=== PATIENT | female | born 2000 | race Caucasian/White ===

== ENCOUNTER 2020-01-16 12:29 | Outpatient (CLI) | payer MEDICAID, SELFPAY ==
--- NOTE | ~2020-01-16 | US_ITS ---
EXAMINATION: US OB <=14 wk fetus w TV DATE: 01/16/2020 13:49 INDICATION: First trimester dating TECHNIQUE: Real-time pelvic transabdominal and transvaginal ultrasound was performed. COMPARISON: None. FINDINGS: The uterus measures 11.0 x 7.7 x 9.2 cm. There is an intrauterine gestational sac. A yolk sac is identified. heart motion is identified measuring 166 beats per minute (bpm) by M-mode Do ppler. The crown rump length measures 2.1 cm , which correlates with an estimated gestational a ge of 8 weeks and 5 day(s) (+/-) 5 day(s). The right ovary is not visualized however no right adnexal abnormality is seen. The left ovary measur es 1.8 x 1.7 x 1.6 cm. There is no free fluid in the pelvis. IMPRESSION: 1. Live intrauterine with an estimated gestational age of 8 weeks and 5 day(s) (+/-) 5 day( s) and an estimated delivery date of 08/22/2020. Reviewed, dictated and finalized at location B. IMPRESSION: 1. Live intrauterine with an estimated gestational age of 8 weeks and 5 day(s) (+/-) 5 day(s) and an estimated delivery date of 08/22/2020.
== END 2020-01-16 12:30 | disposition home or self-care (01) ==
PROVIDERS: Visit Provider Obstetrics & Gynecology
DX: Z34.91 Encounter for supervision of normal pregnancy, unspecified, first trimester (principal); Z3A.08 8 weeks gestation of pregnancy
CPT/HCPCS: 76801; 76817

== ENCOUNTER 2020-03-31 10:04 | Outpatient (CLI) | payer OTHER, SELFPAY ==
--- NOTE | ~2020-03-31 | US_ITS ---
EXAMINATION: US OB /maternal detail DATE: 03/31/2020 11:27 INDICATION: anatomic survey. TECHNIQUE: Real-time ultrasound of the pelvis was performed. COMPARISON: Ultrasound 01/16/2020 FINDINGS: There is a single living fetus in vertex presentation. The placenta is anterior, 5.2 cm from the cer vix. heart rate is 139 beats per minute (bpm). The amniotic fluid volume is subjectively normal . The following biometric data were obtained: Biparietal diameter (BPD): 4.5 cm; head circumference (HC): 16.4 cm; abdominal circumference (AC): 13 .9 cm; femur length (FL): 2.9 cm. These measurements are concordant. Estimated weight is 279 g +/- 42 g, which correlates with 32nd percentile when 08/22/20 is used as estimated date of delivery. As single measurements, these parameters are each equal to the following estimated gestational ages w ith ranges of +/- 2 standard deviations: BPD: 19 weeks 5 days (18 weeks 0 days - 21 weeks 3 days). HC: 19 weeks 1 days (17 weeks 4 days - 20 weeks 4 days). AC: 19 weeks 2 days (17 weeks 2 days - 21 weeks 3 days). FL: 19 weeks 0 days (17 weeks 2 days - 20 weeks 6 days). estimated gestational age based solely on measurements from this exam is 19 weeks 2 days +/- 1 weeks 2 days. The cerebral ventricles, cerebellum, cisterna magna, nuchal fold, and visualized portions of the spin e are normal. The heart is normal. The diaphragm, stomach, kidneys, and bladder are normal. There are two umbilical arteries to yield a 3-vessel cord. The cord insertion is normal. IMPRESSION: 1. Single living fetus in vertex presentation. 2. Estimated weight is 279 g +/- 42 g, which correlates with 32nd percentile when 08/22/20 is u sed as estimated date of delivery. This date was set by ultrasound on 01/16/2020. 3. Normal anatomic survey. Reviewed, dictated and finalized at location A. IMPRESSION: 1. Single living fetus in vertex presentation. 2. Estimated weight is 279 g +/- 42 g, which correlates with 32nd percen tile when 08/22/20 is used as estimated date of delivery. This date was set by [facility] on 01/16/2020. 3. Normal anatomic survey.
== END 2020-03-31 10:05 | disposition home or self-care (01) ==
PROVIDERS: Visit Provider Obstetrics & Gynecology
DX: Z34.92 Encounter for supervision of normal pregnancy, unspecified, second trimester (principal); Z3A.19 19 weeks gestation of pregnancy
CPT/HCPCS: 76805

== ENCOUNTER 2020-05-14 14:56 | Observation (INO) | payer OTHER, SELFPAY ==
[2020-05-14 15:15] VITALS: BMI 33.9
[2020-05-14 15:59] VITALS: BP 123/67; PULSE 76
[2020-05-14 16:01] VITALS: BP 117/71; PULSE 85
[2020-05-14 16:15] VITALS: BP 112/71; PULSE 85
[2020-05-14 16:20] LABS: Add Urine Microscopic? YES; Appearance Urine Clear (Clear); Bacteria Urine Trace /hpf; Bilirubin Urine Negative (Negative); Blood Urine Negative (Negative); Color Urine Yellow (Yellow); Glucose Urine UA Negative (Negative); Ketones Urine Trace mg/dL (Negative); Leukocyte Esterase Ur Negative LEU/UL (NEGATIVE); Mucus Urine Moderate /lpf; Nitrate Urine Negative (Negative); Protein Urine 1+ mg/dL (Negative); RBC Urine 0-2 /hpf (0-2); Squamous Epithelial Cell Urine Few /hpf (Few); Urobilinogen Urine Negative mg/dL (<2.0)
[2020-05-14 16:30] VITALS: BP 105/46; PULSE 83
[2020-05-14 16:45] VITALS: BP 124/79; PULSE 87
[2020-05-14 17:00] VITALS: BP 129/75; PULSE 94
--- NOTE | 2020-05-14 18:15 | P.PNOB_ITS ---
OB - Triage/Final Diagnosis Evaluation Laboratory results: Laboratory Tests 05/14/20 16:05 Urine Color Yellow Urine Appearance Clear Urine pH 6.0 Ur Specific [place] 1.020 Urine Protein 1+ H Urine Glucose (UA) Negative Urine Ketones Trace Ur Blood (Man) Negative Urine Nitrate Negative Urine Bilirubin Negative Urine Urobilinogen Negative Ur Leukocyte Esterase Negative Urine RBC 0-2 Urine WBC 4-6 H Ur Squamous Epith Cells Few Urine Bacteria Trace Urine Mucus Moderate H Vital signs: Vital Signs - 24 hr 05/14/20 15:59 05/14/20 16:01 05/14/20 16:15 Pulse Rate 76 85 85 Blood Pressure 123/67 117/71 112/71 05/14/20 16:30 05/14/20 16:45 05/14/20 17:00 Pulse Rate 83 87 94 Blood Pressure 105/46 L 124/79 129/75 Final Diagnosis (1) Abdominal pain affecting : Code(s): O26.899 - Other specified related conditions, unspecified trimester; R10.9 - Unspecified abdominal pain Status: Acute
== END 2020-05-14 17:25 | disposition home or self-care (01) ==
PROVIDERS: Admitting Provider Obstetrics & Gynecology; Visit Provider Obstetrics & Gynecology
DX: O26.899 Other specified pregnancy related conditions, unspecified trimester (principal); R10.9 Unspecified abdominal pain; Z3A.00 Weeks of gestation of pregnancy not specified
CPT/HCPCS: 81001; 87086; 87088; G0378; G0379

== ENCOUNTER 2020-05-27 10:47 | Outpatient (RCR) | payer OTHER, SELFPAY ==
[2020-05-27] MEDS: RHO(D) IMMUNE GLOBULIN 300 MCG SYRINGE IM (15:09)
== END 2020-08-25 23:59 | disposition home or self-care (01) ==
LOC: ANHLAB 10:47
PROVIDERS: Visit Provider Physician Assistant
DX: Z29.13 Encounter for prophylactic Rho(D) immune globulin (principal); O36.0990 Maternal care for other rhesus isoimmunization, unspecified trimester, not applicable or unspecified; Z3A.00 Weeks of gestation of pregnancy not specified
CPT/HCPCS: 36415; 85461; 90384; 96372; J2790

== ENCOUNTER 2020-05-31 13:36 | Outpatient (CLI) | payer OTHER, SELFPAY ==
--- NOTE | ~2020-05-31 | US_ITS ---
EXAMINATION: US OB follow up DATE: 05/31/2020 14:18 INDICATION: Routine care. TECHNIQUE: Real-time transabdominal obstetric ultrasound. FINDINGS: Comparison to multiple prior studies sequentially, with oldest reviewed study dated 2019. There is a single living fetus in vertex presentation. The placenta is anterior without placenta pre via. cardiac activity and movement is noted with a heart rate of 127 beats per minute. A mniotic fluid index is below normal limits measuring 8.95 cm (normal range measures 9.4-22.8 cm). The following biometric data were obtained: BPD: 72mm corresponds to gestational age 29 weeks 0 days. Head circumference: 266mm corresponds to gestational age 28 weeks 6 days. Abdominal circumference: 240mm corresponds to gestational age 28 weeks 2 days. Femur length: 54mm corresponds to gestational age 28 weeks 4 days. Estimated weight: 1233grams +/- 185grams.] IMPRESSION: 1. Single living intrauterine in vertex presentation with an estimated gestational age of 28 weeks 1 days by inititial ultrasound. Appropriate interval growth. 2. Normal placenta. 3: Oligohydramnios. ROCHELLE measures 8.95 cm. Reviewed, dictated and finalized at location A. MANAGER IMPRESSION: 1. Single living intrauterine in vertex presentation with an estimat ed gestational age of 28 weeks 1 days by inititial ultrasound. Appropriate int erval growth. 2. Normal placenta. 3: Oligohydramnios. ROCHELLE measures 8.95 cm.
== END 2020-05-31 13:37 | disposition home or self-care (01) ==
LOC: ANHIMG 13:39
PROVIDERS: Visit Provider Physician Assistant
DX: O41.03X0 Oligohydramnios, third trimester, not applicable or unspecified (principal); Z3A.28 28 weeks gestation of pregnancy
CPT/HCPCS: 76816

== ENCOUNTER 2020-07-29 16:46 | Outpatient (RCR) | payer OTHER, SELFPAY ==
[2020-07-20 20:52] VITALS: BP 124/70
--- NOTE | ~2020-07-29 | US_ITS ---
EXAMINATION: US OB BPP wo non-stress EXAM DATE: 07/29/2020 18:08 INDICATION: Preeclampsia. Biophysical profile requested. 3rd trimester. TECHNIQUE: Pelvic obstetrical transabdominal sonogram was performed by a technologist. There are mu ltiple grayscale and Doppler images available for interpretation. There are no earlier studies of th is gestation for comparison. FINDINGS: There is a single fetus identified in vertex presentation with a heart rate of 135 beats pe r minute. The placenta is located in the anterior position. Placental margin to internal cervical os distance is about 9 cm. There is no sonographic evidence of retroplacental hemorrhage identified. BIOPHYSICAL PROFILE (performed by the technologist) breathing (30 sec sustained breathing in 30 minutes): 2 out of 2 movement (3 gross body movements in 30 minutes): 2 out of 2 tone (one episode of hfqldip-pcxynjhjv-oliqdfc limb movement): 2 out of 2 Amniotic fluid pocket (2 cm): 2 out of 2 Total score: 8 out of 8 IMPRESSION: 1. Single fetus with heart rate of 135 bpm. 2. Normal biophysical profile score of 8 out of 8. Reviewed, dictated and finalized at location A. ERIES DIRECTOR
[2020-07-29 17:31] LABS: Hematocrit 33.2 % (37.0-47.0); Hemoglobin 11.6 g/dL (12.0-15.0); Mean Corpuscular HGB Conc 34.9 g/dl (32-36); Mean Corpuscular Hemoglobin 30.3 pg (26-34); Mean Corpuscular Volume 86.7 fl (80-100); Mean Platelet Volume 9.2 fl (7.4-10.4); Platelet Count Result 288 k/mm3 (150-375); Red Blood Count 3.83 M/mm3 (4.2-5.4); Red Cell Distribution Width 12.4 % (11.5-14.5); White Blood Count 13.2 K/mm3 (4.5-10.0)
[2020-07-29 17:36] LABS: Add Urine Microscopic? YES; Appearance Urine Cloudy (Clear); Bacteria Urine Trace /hpf; Bilirubin Urine Negative (Negative); Blood Urine Negative (Negative); Color Urine Yellow (Yellow); Glucose Urine UA Negative (Negative); Ketones Urine Negative (Negative); Leukocyte Esterase Ur Negative LEU/UL (NEGATIVE); Mucus Urine Heavy /lpf; Nitrate Urine Negative (Negative); Protein Urine 2+ mg/dL (Negative); RBC Urine 0-2 /hpf (0-2); Specific Grav Ur 1.027 (1.001-1.035); Squamous Epithelial Cell Urine Few /hpf (Few); Urobilinogen Urine Negative mg/dL (<2.0); WBC Urine 0-3 /hpf (0-3)
[2020-07-29 17:43] LABS: Alanine Aminotransferase 12 U/L (4-35); Albumin Level 3.8 g/dL (3.5-5.1); Alkaline Phosphatase 108 U/L (38-126); Anion Gap 7 mmol/L (8-16); Aspartate Amino Transferase 19 U/L (14-36); Bilirubin,Total 1.1 mg/dL (0.2-1.3); Blood Urea Nitrogen 7 mg/dL (7-17); Calcium 9.2 mg/dL (8.4-10.2); Carbon Dioxide 20 mmol/L (22-30); Chloride 107 mmol/L (98-107); Estimated Glomerular Filt Rate > 60; Glucose 91 mg/dL (65-105); Potassium 3.8 mmol/L (3.4-5.0); Sodium 134 mmol/L (137-145); Uric Acid 2.8 mg/dL (2.5-7.5)
[2020-07-29 18:00] VITALS: BP 115/68
--- NOTE | 2020-07-29 18:07 | PC.NURSE ---
Dr Kirk informed of [facility] labs, NST results, and BPP, current BP's, OK to dc home and follow up in office next week.
== END 2020-08-16 07:51 | disposition home or self-care (01) ==
LOC: ANHOBOP 16:46
PROVIDERS: Visit Provider Obstetrics & Gynecology
DX: O36.8130 Decreased fetal movements, third trimester, not applicable or unspecified (principal); Z3A.35 35 weeks gestation of pregnancy; O16.3 Unspecified maternal hypertension, third trimester; Z3A.36 36 weeks gestation of pregnancy
CPT/HCPCS: 36415; 59025; 76819; 80053; 81001; 84550; 85027

== ENCOUNTER 2020-08-02 08:04 | Observation (INO) | payer OTHER, SELFPAY ==
[2020-08-02 08:28] VITALS: BMI 38.2
--- NOTE | 2020-08-02 08:29 | OBADM ---
This patient, Cassie Harrell, admitted to the OB room OB Post 116 for observation. Patient/family oriented to hospital policies and general routines including ID bracelet, bed and alarms, visiting hours, pain management, procedures, bathroom and other care routines, personal items, smoking policy, room service/diet, and visiting hours. Patient/Family are encouraged to report perceived risks to care and to ask questions if they do not understand what they are told or what they should do.
[2020-08-02 08:31] VITALS: BP 106/55; PULSE 100
--- NOTE | 2020-08-02 08:43 | PC.NURSE ---
0815- Patient reports that she fell on her front steps after slipping on cat litter. States she fell on her bottom down about 2 steps, certain she did not hit her belly.
--- NOTE | 2020-08-02 08:44 | PC.NURSE ---
0837- Spoke with Dr. Kirk, informed of patient admission after a fall around 0300. Patient states she did not hit her belly. Orders to monitor patient for duration of NST, if reactive patient may be discharged to home. We may do a BPP if patient is concerned about baby. No orders for prolonged monitoring or KB stain. Patient declines ultrasound.
[2020-08-02 08:58] VITALS: BP 106/55; PULSE 89
--- NOTE | 2020-08-08 07:50 | PM.OBTRLD ---
OB - Triage/Final Diagnosis Visit Information Comments/Additional reasons for admission: I have assessed the risk for this patient, Cassie Harrell, and determined that she would benefit from observation care. Final Diagnosis (1) PIH ( induced hypertension), antepartum: Code(s): O13.9 - Gestational [-induced] hypertension without significant proteinuria, unspecified trimester Status: Acute
== END 2020-08-02 09:08 | disposition home or self-care (01) ==
PROVIDERS: Admitting Provider Obstetrics & Gynecology; Visit Provider Obstetrics & Gynecology
DX: O13.3 Gestational [pregnancy-induced] hypertension without significant proteinuria, third trimester (principal); Z3A.37 37 weeks gestation of pregnancy
CPT/HCPCS: 59025; G0378; G0379

== ENCOUNTER 2020-08-05 16:26 | Outpatient (CLI) | payer OTHER, SELFPAY ==
[2020-08-05 16:54] VITALS: BP 130/72; PULSE 115
[2020-08-05 17:00] VITALS: BP 124/77; PULSE 109; TEMP 36.9
[2020-08-05 17:01] VITALS: BP 124/77; PULSE 109
[2020-08-05 17:14] LABS: Basophils Absolute Auto 0.1 K/mm3 (0.0-0.1); Basophils Percent Auto 0.5 % (0.2-1.2); Eosinophils Percent Auto 0.2 % (0-4.4); Hematocrit 33.1 % (37.0-47.0); Hemoglobin 11.2 g/dL (12.0-15.0); Immature Granulocyte Percent A 2.6 % (0-0.5); Lymphocytes Absolute Auto 2.04 K/mm3 (0.9-3.2); Lymphocytes Percent Auto 13.3 % (18.3-44.2); Mean Corpuscular HGB Conc 33.8 g/dl (32-36); Mean Corpuscular Hemoglobin 29.2 pg (26-34); Mean Corpuscular Volume 86.2 fl (80-100); Mean Platelet Volume 9.3 fl (7.4-10.4); Monocytes Absolute Auto 1.2 K/mm3 (0.1-0.6); Monocytes Percent Auto 7.9 % (2.6-8.5); Neutrophils Absolute Auto 11.6 K/mm3 (1.3-6.7); Neutrophils Percent Auto 75.5 % (45.5-73.1); Platelet Count Result 270 k/mm3 (150-375); Red Blood Count 3.84 M/mm3 (4.2-5.4); Red Cell Distribution Width 12.7 % (11.5-14.5); White Blood Count 15.3 K/mm3 (4.5-10.0)
[2020-08-05 17:16] VITALS: BP 129/88; PULSE 110
[2020-08-05 17:18] LABS: Add Urine Microscopic? YES; Amorphous Sediment Urine Few; Appearance Urine Cloudy (Clear); Bacteria Urine Trace /hpf; Bilirubin Urine Negative (Negative); Blood Urine Negative (Negative); Color Urine Yellow (Yellow); Glucose Urine UA Negative (Negative); Ketones Urine Trace mg/dL (Negative); Leukocyte Esterase Ur Negative LEU/UL (NEGATIVE); Mucus Urine Few /lpf; Nitrate Urine Negative (Negative); Protein Urine 1+ mg/dL (Negative); RBC Urine 0-2 /hpf (0-2); Specific Grav Ur 1.015 (1.001-1.035); Squamous Epithelial Cell Urine Occasional /hpf (Few); Urobilinogen Urine Negative mg/dL (<2.0); WBC Urine 0-3 /hpf (0-3)
[2020-08-05 17:19] LABS: Alanine Aminotransferase 12 U/L (4-35); Albumin Level 3.8 g/dL (3.5-5.1); Alkaline Phosphatase 127 U/L (38-126); Anion Gap 10 mmol/L (8-16); Aspartate Amino Transferase 19 U/L (14-36); Bilirubin,Total 0.8 mg/dL (0.2-1.3); Blood Urea Nitrogen 8 mg/dL (7-17); Calcium 9.6 mg/dL (8.4-10.2); Carbon Dioxide 19 mmol/L (22-30); Chloride 107 mmol/L (98-107); Estimated Glomerular Filt Rate > 60; Glucose 86 mg/dL (65-105); Potassium 4.1 mmol/L (3.4-5.0); Sodium 136 mmol/L (137-145); Uric Acid 3.2 mg/dL (2.5-7.5)
[2020-08-05 17:19] LABS: Creatinine Urine 88.3 mg/dL; Total Protein Urine Random 37 mg/dL; Ur Ttl Prot Creatinine Ratio 0.42 mg/mg (0-0.20)
[2020-08-05 17:21] VITALS: BP 129/88; PULSE 110
--- NOTE | 2020-08-05 17:30 | PC.NURSE ---
Dr. Kirk informed of reactive NST, BP's, and lab results. OK to discharge to home and to keep next scheduled appointment.
[2020-08-05 17:31] VITALS: BP 137/58; PULSE 118
== END 2020-08-05 17:33 | disposition home or self-care (01) ==
LOC: ANHOBOP 16:32 → ANHOBPP 16:33
PROVIDERS: Visit Provider Obstetrics & Gynecology
DX: O13.9 Gestational [pregnancy-induced] hypertension without significant proteinuria, unspecified trimester (principal); Z3A.00 Weeks of gestation of pregnancy not specified
CPT/HCPCS: 36415; 59025; 80053; 81001; 82570; 84156; 84550; 85025; 87086; 87088; 99199

== ENCOUNTER 2020-08-14 04:49 | Inpatient (IN) | payer OTHER, SELFPAY ==
--- NOTE | 2020-08-13 21:01 | PM.IMHP ---
H&P: HPI History of Present Illness Date/Time: 08/13/20 21:01 Chief Complaint: elective induction of labor 38.6 w for PIH Narrative: Cassie Harrell is a 20 year old female primigravida presents for IOL due to PIH at 38w6d. c/b MTHFR, bipolar disorder, RhD negative, PCOS, JOSE, and pre-eclampsia. Discuss IOL wth cervidil possible two doses then pitocin with magnesium sulfate.i explained her condition the procedure and risks including mat/fet ind for c/s with risk of bleeding, infection, injury to bladdder, bowel, baby, dvt, pneumonia, wound infection, uti and risk of anesthesia. Review of Systems Review of Systems: All systems reviewed & are unremarkable except as noted in HPI and below Constitutional: Constitutional: Reports no additional constitutional complaints Eyes: Eyes: Reports no additional eye complaints ENT: Reports system reviewed and no additional complaints, except as documented Cardiovascular: Cardiovascular: Reports no additional cardiovascular complaints, Reports pedal edema, Reports edema and Reports leg edema Respiratory: Respiratory: Reports no additional respiratory complaints Gastrointestinal: Gastrointestinal: Reports no additional gastrointestinal complaints Genitourinary: Genitourinary: Reports no additional female genitourinary complaints Musculoskeletal: Musculoskeletal: Reports no additional musculoskeletal complaints Integumentary/Breasts: Skin/Breast: Reports system reviewed and no additional complaints, except as docu Neurologic: Reports system reviewed and no additional complaints, except as documented Psychiatric: Psychiatric: Reports no additional psychiatric complaints Endocrine: Endocrine: Reports no additional endocrine complaints Hematologic/Lymphatic: Hematologic/Lymphatic: Reports no additional hematologic/lymphatic complaints [facility] Past Medical History Medical History (Updated 08/13/20 @ 21:17 by Jonah Kirk MD) Bipolar 1 disorder Compound heterozygous MTHFR mutation [id number] JOSE (generalized anxiety disorder) IBS (irritable bowel syndrome) PCOS (polycystic ovarian syndrome) Rh negative state in antepartum period Surgical History Surgical History (Updated 08/13/20 @ 21:14 by Jonah Kirk MD) H/O wisdom tooth extraction Hx of tonsillectomy Family History Family History Grandparent Hypertension Sibling Anemia Social History Social History (Updated 08/13/20 @ 21:15 by Jonah Kirk MD) Smoking status: Never smoker Alcohol intake: never Substance use: former Substance use type: marijuana Living arrangements: with family Occupation/Education: unemployed Gender identity (if verbalized by the patient): Female Spiritual care concerns: No Agree to blood products: Yes Meds Home Medications and Allergies Home Medications Medication Instructions Recorded Confirmed Type folic acid 2 mg PO BID 07/20/20 08/05/20 History lamotrigine 100 mg PO BID 07/20/20 08/05/20 History prenat.vits,catia,bem-[id number] 1 tablet PO DAILY 07/27/20 08/05/20 History Allergies Allergy/AdvReac Type Severity Reaction Status Date / Time clavulanic acid Allergy Unknown Hives Verified 08/05/20 17:09 Sulfa (Sulfonamide Allergy Unknown Hives Verified 08/05/20 17:12 Antibiotics) doxycycline AdvReac Vomiting Verified 08/05/20 17:12 Exam Const: General: cooperative, healthy appearing, comfortable, no acute distress, well developed, alert, awake and Physically active Nutritional Appearance: average body habitus, well nourished and edematous Orientation/consciousness: patient oriented x3 Limitations: no limitations HENMT: Head: normal to inspection Eyes: General: appearance normal, both eyes and all related structures Neck: Neck: normal visual inspection and full ROM Chest: Chest palpation & inspection: normal inspection of the chest Breast/axilla inspection: nor
--- NOTE | 2020-08-13 21:23 | WPDOBADMIT ---
Obstetrics - Admit Note Admission Note: record reviewed. No pertinent additions to the history and/or any subsequent changes in the physical findings that are not consistent with the expected course of the were found. Additions to the history and/or subsequent changes in the physical findings follow. None. Cassie Harrell is a 20 year old female primigravida presents for IOL due to PIH at 38w6d. c/b MTHFR, bipolar disorder, RhD negative, PCOS, JOSE, and pre-eclampsia. Discuss IOL wth cervidil possible two doses then pitocin with magnesium sulfate.i explained her condition the procedure and risks including mat/fet ind for c/s with risk of bleeding, infection, injury to bladdder, bowel, baby, dvt, pneumonia, wound infection, uti and risk of anesthesia.
--- NOTE | 2020-08-13 21:25 | WPDHPUPDATE1 ---
History and Physical Update Update Date/Time: 08/13/20 21:25 History and Physical has been reviewed, including an updated exam of the patient. There are NO changes in the patient's condition. Risks, benefits, and alternatives have been discussed and questions answered. Patient agrees to proceed with procedure. Cassie Harrell is a 20 year old female primigravida presents for IOL due to PIH at 38w6d. c/b MTHFR, bipolar disorder, RhD negative, PCOS, JOSE, and pre-eclampsia. Discuss IOL wth cervidil possible two doses then pitocin with magnesium sulfate.i explained her condition the procedure and risks including mat/fet ind for c/s with risk of bleeding, infection, injury to bladdder, bowel, baby, dvt, pneumonia, wound infection, uti and risk of anesthesia.
[2020-08-14] VITALS (109 sets, daily range): BP systolic 86–152; BP diastolic 44–88; PULSE 64–122; TEMP 36.6–36.9; O2SAT 97–100; BMI 38.0
--- NOTE | 2020-08-14 04:49 | LDADM ---
This patient, Cassie Harrell, was admitted to Labor/Delivery/Recovery 104 on 08/14/20 at 04:49. Plans for labor, pain management and were discussed with patient. Patient/family oriented to hospital policies and general routines including ID bracelet, bed and alarms, visiting hours, pain management, procedures, bathroom and other care routines, personal items, smoking policy, room service/diet and guest tray routines, infant security routines, and visiting hours. Patient/Family are encouraged to report perceived risks to care and to ask questions if they do not understand what they are told or what they should do. See OBIX for further documentation.
[2020-08-14 05:44] LABS: Basophils Percent Auto 0.3 % (0.2-1.2); Eosinophils Absolute Auto 0.1 K/mm3 (0-0.3); Eosinophils Percent Auto 0.5 % (0-4.4); Hematocrit 34.2 % (37.0-47.0); Hemoglobin 11.4 g/dL (12.0-15.0); Immature Granulocyte Absolute 0.19 K/mm3 (0.00-0.031); Immature Granulocyte Percent A 1.7 % (0-0.5); Lymphocytes Absolute Auto 2.48 K/mm3 (0.9-3.2); Lymphocytes Percent Auto 21.8 % (18.3-44.2); Mean Corpuscular HGB Conc 33.3 g/dl (32-36); Mean Corpuscular Hemoglobin 29.2 pg (26-34); Mean Corpuscular Volume 87.5 fl (80-100); Mean Platelet Volume 9.1 fl (7.4-10.4); Monocytes Absolute Auto 0.8 K/mm3 (0.1-0.6); Monocytes Percent Auto 7.4 % (2.6-8.5); Neutrophils Absolute Auto 7.8 K/mm3 (1.3-6.7); Neutrophils Percent Auto 68.3 % (45.5-73.1); Platelet Count Result 265 k/mm3 (150-375); Red Blood Count 3.91 M/mm3 (4.2-5.4); White Blood Count 11.4 K/mm3 (4.5-10.0)
[2020-08-14 05:54] LABS: Alanine Aminotransferase 18 U/L (4-35); Albumin Level 3.6 g/dL (3.5-5.1); Alkaline Phosphatase 143 U/L (38-126); Anion Gap 7 mmol/L (8-16); Aspartate Amino Transferase 22 U/L (14-36); Bilirubin,Total 1.2 mg/dL (0.2-1.3); Blood Urea Nitrogen 8 mg/dL (7-17); Carbon Dioxide 22 mmol/L (22-30); Chloride 106 mmol/L (98-107); Estimated Glomerular Filt Rate > 60; Glucose 127 mg/dL (65-105); Potassium 3.3 mmol/L (3.4-5.0); Sodium 135 mmol/L (137-145)
[2020-08-14 05:55] LABS: Uric Acid 3.2 mg/dL (2.5-7.5)
[2020-08-14] MEDS: DINOPROSTONE 10 MG VAG INSERT VAGINAL (06:32)
--- NOTE | 2020-08-14 06:36 | WPDHPUPDATE1 ---
History and Physical Update Update Date/Time: 08/14/20 06:36 History and Physical has been reviewed, including an updated exam of the patient. There are NO changes in the patient's condition. Risks, benefits, and alternatives have been discussed and questions answered. Patient agrees to proceed with procedure. elective induction of labor for PIH
[2020-08-14 08:26] LABS: Amphetamine Screen Urine Negative (Negative); Barbiturate Screen Urine Negative (Negative); Benzodiazepines Screen Urine Negative (Negative); Cannabinoid Screen Urine Negative (Negative); Cocaine Screen Urine Negative (Negative); Methadone Screen Urine Negative (Negative); Opiate Screen Urine Negative (Negative); Phencyclidine Screen Urine Negative (Negative)
[2020-08-14] MEDS: OXYTOCIN 30 UNITS/NS 500 ML 30 UNITS/500 ML BAG IV CONT (19:02)
[2020-08-14] MEDS: LACTATED RINGERS 1,000 ML 125 ML IV CONT (19:02)
[2020-08-14] MEDS: fentaNYL CITRATE INJ (*CRX) 100 MCG/2 ML VIAL 50 MCG IV PUSH (20:10)
--- NOTE | 2020-08-14 20:52 | WPDANESEPP ---
Anes - Eval Pre Procedure Procedure: labor epidural Date/Time: 08/14/20 20:52 Surgeon: Yelena Preop Diagnosis: labor pain Pre Op Diagnosis: IOL Patient Data Age: 20 Gender: F Height: 1.6 m Weight: 97.5 kg Last Vital Signs Temp 36.7 C 08/14/20 17:30 Pulse 79 08/14/20 20:51 BP 128/82 08/14/20 20:51 Pulse Ox 100 08/14/20 20:51 Allergies Allergy/AdvReac Type Severity Reaction Status Date / Time clavulanic acid Allergy Unknown Hives Verified 08/05/20 17:09 Sulfa (Sulfonamide Allergy Unknown Hives Verified 08/05/20 17:12 Antibiotics) doxycycline AdvReac Vomiting Verified 08/05/20 17:12 Home Medications Medication Instructions Recorded Confirmed Type folic acid 2 mg PO BID 07/20/20 08/14/20 History lamotrigine 100 mg PO BID 07/20/20 08/14/20 History prenat.vits,catia,czb-uqaw-sjlig 1 tablet PO DAILY 07/27/20 08/14/20 History escitalopram oxalate 10 mg PO DAILY 08/14/20 08/14/20 History Laboratory Tests 08/14/20 08/14/20 08/14/20 05:34 05:34 05:34 WBC 11.4 K/mm3 H K/mm3 (4.5-10.0) RBC 3.91 M/mm3 L M/mm3 (4.2-5.4) Hgb 11.4 g/dL L g/dL (12.0-15.0) Hct 34.2 % L % (37.0-47.0) MCV 87.5 fl fl (80-100) MCH 29.2 pg pg (26-34) MCHC 33.3 g/dl g/dl (32-36) RDW 13.0 % % (11.5-14.5) Plt Count 265 k/mm3 k/mm3 (150-375) MPV 9.1 fl fl (7.4-10.4) Immature Gran % (Auto) 1.7 % H % (0-0.5) Neut % (Auto) 68.3 % % (45.5-73.1) Lymph % (Auto) 21.8 % % (18.3-44.2) [place] % (Auto) 7.4 % % (2.6-8.5) Eos % (Auto) 0.5 % % (0-4.4) Baso % (Auto) 0.3 % % (0.2-1.2) Lymph # (Auto) 2.48 K/mm3 K/mm3 (0.9-3.2) [place] # (Auto) 0.8 K/mm3 H K/mm3 (0.1-0.6) Eos # (Auto) 0.1 K/mm3 K/mm3 (0-0.3) Baso # (Auto) 0.0 K/mm3 K/mm3 (0.0-0.1) Abs Immat Gran (auto) 0.19 K/mm3 H K/mm3 (0.00-0.031) Absolute Neuts (auto) 7.8 K/mm3 H K/mm3 (1.3-6.7) Absolute Nucleated RBC 0.0 K/mm3 K/mm3 (0.0-0.012) Nucleated RBC % 0.0 % % (0.0-0.2) Sodium Potassium Chloride Carbon Dioxide Anion Gap BUN Creatinine Estim Creat Clear Calc Estimated GFR Glucose Uric Acid 3.2 mg/dL mg/dL (2.5-7.5) Calcium Total Bilirubin AST ALT Alkaline Phosphatase Total Protein Albumin Urine Opiates Screen Urine Methadone Screen Ur Barbiturates Screen Ur Phencyclidine Scrn Ur Amphetamine Screen U Benzodiazepines Scrn Urine Cocaine Screen U Cannabinoids Screen RPR Pending Blood Type Antibody Screen 08/14/20 08/14/20 08/14/20 05:34 05:34 08:01 WBC RBC Hgb Hct MCV MCH MCHC RDW Plt Count MPV Immature Gran % (Auto) Neut % (Auto) Lymph % (Auto) [place] % (Auto) Eos % (Auto) Baso % (Auto) Lymph # (Auto) [place] # (Auto) Eos # (Auto) Baso # (Auto) Abs Immat Gran (auto) Absolute Neuts (auto) Absolute Nucleated RBC Nucleated RBC % Sodium 135 mmol/L L mmol/L (137-145) Potassium 3.3 mmol/L L mmol/L (3.4-5.0) Chloride 106 mmol/L mmol/L (98-107) Carbon Dioxide 22 mmol/L mmol/L (22-30) Anion Gap 7 mmol/L L mmol/L (8-16) BUN 8 mg/dL mg/dL (7-17) Creatinine 0.40 mg/dL L mg/dL (0.7-1.0) Est
[2020-08-15] VITALS (69 sets, daily range): BP systolic 106–150; BP diastolic 50–114; PULSE 59–106; RESP 16–18; TEMP 36.3–37.2; O2SAT 98–100
[2020-08-15] MEDS: LACTATED RINGERS 1,000 ML 125 ML IV CONT (01:11)
[2020-08-15] MEDS: ONDANSETRON INJ 4 MG/2 ML VIAL IV PUSH (02:29)
--- NOTE | 2020-08-15 04:22 | PM.OBPNLAB ---
Pain Control Date/time seen: 08/15/20 03:32 Pain control: tolerating well and epidural Pelvic Exam Dilation (cm): 10 Effacement (%): 100 station: +1 Amniotic membrane status: Ruptured Contractions Monitor mode: External Contraction frequency: 2 Contraction pattern: Regular Contraction phase: Contraction Contraction intensity: Strong/Firm Status status: Category l Assessment and Plan Assessment: active labor and other (complete stage 1) Plan: continuous present management and other Comments: begin stage 2
--- NOTE | 2020-08-15 04:24 | P.PCNOB_ITS ---
OB - Delivery Note Procedure Delivery date: 08/15/20 Procedure: Normal spontaneous vertex vaginal delivery a viable male infant and placenta Repair of first-degree perineal laceration events: Pre-Eclampsia and Labor Induction Intrapartal events: Mild Preeclampsia Induction method: per pitocin protocol and per cervidil protocol Delivery augmentation: pitocin Delivery monitor: external FHT and external uterine Route of delivery: Laceration Description: Perineal - 1st Degree Delivery repair: vicryl Specimen: Yes Quantitative Blood Loss (ml): 300 Anesthesia type: Epidural Disposition: floor Complications: none Narrative: Normal spontaneous vertex vaginal delivery a viable male infant infa nt delivered and placed on maternal abdomen cord clamped and cut spontaneous respirations and cry no observed abnormalities on the examination placenta delivered intact three-vessel cord the uterus contracted well Pitocin given intravenously first-degree perineal laceration was repaired with 2 0 Vicryl suture blood clots removed and the uterus the uterus was firm bleeding minimal mom and baby in LDR room 104 in stable condition Baby Date of : 08/15/20 Time of : 04:01 Weeks of gestation at delivery: 39 Infant gender: Male Weight (pounds): 8 Weight (ounces): 12 presentation: vertex position: Left Occiput Anterior Placenta delivery description: Spontaneous and Normal Configuration cord vessel description: 3 Vessels score one minute: 9 score five minutes: 9
--- NOTE | 2020-08-15 04:33 | PM.OBDSVD ---
DS: Admitting Diagnosis Admitting Diagnosis Admitting Diagnosis: Term -induced hypertension MTHFR Generalized anxiety disorder Bipolar Rh negative Elective induction of labor DS: Discharge Diagnosis Discharge Diagnosis (1) Term delivered: Code(s): O80 - Encounter for full-term uncomplicated delivery Status: Acute (2) Encounter for elective induction of labor: Code(s): Z34.90 - Encounter for supervision of normal , unspecified, unspecified trimester Status: Acute (3) Compound heterozygous MTHFR mutation [id number]: Code(s): E72.12 - Methylenetetrahydrofolate reductase deficiency Status: Acute (4) Rh negative state in antepartum period: Code(s): O26.899 - Other specified related conditions, unspecified trimester; Z67.91 - Unspecified blood type, Rh negative Status: Acute (5) JOSE (generalized anxiety disorder): Code(s): F41.1 - Generalized anxiety disorder Status: Acute (6) Heterozygous MTHFR mutation C677T: Code(s): E72.12 - Methylenetetrahydrofolate reductase deficiency Status: Acute (7) Bipolar 1 disorder: Code(s): F31.9 - Bipolar disorder, unspecified Status: Acute (8) PIH ( induced hypertension), antepartum: Code(s): O13.9 - Gestational [-induced] hypertension without significant proteinuria, unspecified trimester Status: Acute OB - DS: Summary Hospital Course Time spent discussing smoking cessation with patient: 3 to 10 minutes OB Procedures : Ultrasound OB Procedures Intrapartum: Spontaneous Vag Delivery OB Procedures: : RHo (D) lg Peripartum Data Delivery Method: Natural Vaginal Laceration Description: Perineal - 1st Degree Episiotomy description: None complications: none [place] 1: Gender: Male Disposition of : home Status at Discharge Functional status at discharge: independent ambulation Time Spent with Patient Time attestation: Total time spent providing and/or coordinating discharge services: Time spent: Less than 30 minutes Exam Const: General: cooperative, healthy appearing, comfortable, no acute distress, well developed, alert, awake and Physically active HENMT: Head: normal to inspection Eyes: General: appearance normal, both eyes and all related structures Neck: Neck: normal visual inspection Chest: Chest palpation & inspection: normal inspection of the chest Resp: Effort & Inspection: normal respiratory effort Cardio: Rate: regular rate Rhythm: regular rhythm GI: Inspection: normal to inspection Auscultation: normal bowel sounds : External Female Exam: normal external appearance Bimanual exam- vagina & uterus: non-tender Back/Spine/Pelvis: Back: no CVA tenderness Skin: General skin exam: normal color Neuro: General: patient oriented x3, gait normal, tone normal, moves all extremities and Normal light touch and pain sensation Extrem: General: normal to inspection and full ROM Psych: Appearance: grossly normal Mental Status: mental status grossly normal Speech and movement: Normal speech and movement present Affect: normal affect Attitude: cooperative Thought process: Normal thought process present Thought content: Yes Normal thought content present Insight: Good insight present (Psych) Judgement: Good judgement present (Psych) DS: Data Data Completed and Pending Labs on day of discharge: Labs from last 24 hours 08/14/20 08/14/20 08/14/20 08:01 05:34 05:34 WBC RBC Hgb Hct MCV MCH MCHC RDW Plt Count MPV Immature Gran % (Auto) Neut % (Auto) Lymph % (Auto) [place] % (Auto) Eos % (Auto) Baso % (Auto) Lymph # (Auto) [place] # (Auto) Eos # (Auto) Baso # (Auto) Abs Immat Gran (auto) Absolute Neuts (auto) Absolute Nucleated RBC Nucleated RBC % Sodium 135 L Potass
[2020-08-15] MEDS: OXYTOCIN 30 UNITS/NS 500 ML 30 UNITS/500 ML BAG 125 UNITS IV CONT (04:40)
[2020-08-15] MEDS: IBUPROFEN 600 MG TABLET PO ×2 (05:55→12:48)
[2020-08-15 09:05] LABS: Rapid Plasma Reagin Non-Reactive (NonReactive)
[2020-08-15] MEDS: ACETAMINOPHEN 325 MG TABLET 650 MG PO ×2 (09:41→15:56)
[2020-08-15] MEDS: DOCUSATE SODIUM 100 MG CAPSULE PO ×2 (09:43→15:58)
[2020-08-15] MEDS: ESCITALOPRAM OXALATE 10 MG TABLET PO (10:29)
[2020-08-15] MEDS: lamoTRIgine 25 MG TABLET 50 MG PO ×2 (10:35→23:00)
--- NOTE | 2020-08-15 19:00 | OBPPTRN ---
0650 Patient transferred to post room #280 via W/C. Support person present. Oriented to unit, room, information board, rooming in, admission packet and security measures. Patient verbalizes understanding.
[2020-08-16] MEDS: IBUPROFEN 600 MG TABLET PO ×2 (01:33→07:24)
[2020-08-16] MEDS: ACETAMINOPHEN 325 MG TABLET 650 MG PO ×2 (01:33→07:25)
--- NOTE | 2020-08-16 05:31 | PM.OBPNVD ---
OB - PN: Subj Subjective Date/time seen: 08/16/20 05:31 Interval history: unable to void after del 900cc i/o cath payne left in overnight and ice to preineum decreased swelling Patient comments: no complaints and pain well controlled [place] baby status: doing well and nursing well feeding status: exclusively breast feeding OB - PN: Obj Data Labs CBC & Chem 7: 08/14/20 05:34 08/14/20 05:34 Labs: Laboratory Results - last 24 hr 08/14/20 05:34 RPR Non-reactive OB - PN A/P Assessment and Plan (1) Term delivered: Code(s): O80 - Encounter for full-term uncomplicated delivery Status: Acute (2) Rh negative state in antepartum period: Code(s): O26.899 - Other specified related conditions, unspecified trimester; Z67.91 - Unspecified blood type, Rh negative Status: Acute Plan day: 1 Plan: routine care, discharge home and follow up 6 weeks Time Spent With Patient Time: Total time spent is greater than 50% in coordination of care (as documented) at patient's floor/unit and/or counseling patient: Time with patient: less than 15 minutes Review of Systems Review of Systems: All systems reviewed & are unremarkable except as noted in HPI and below Exam Const: General: cooperative, healthy appearing, comfortable, no acute distress, alert, awake and Physically active Nutritional Appearance: average body habitus Orientation/consciousness: patient oriented x3 Limitations: no limitations HENMT: Head: normal to inspection Eyes: General: appearance normal, both eyes and all related structures Neck: Neck: normal visual inspection Chest: Chest palpation & inspection: normal inspection of the chest Resp: Effort & Inspection: normal respiratory effort Auscultation: clear to auscultation bilaterally Cardio: Rate: regular rate Rhythm: regular rhythm GI: Inspection: normal to inspection : External Female Exam: normal external appearance Urinary Catheter: Urinary Catheter: patent and draining and urine clear Back/Spine/Pelvis: Back: no CVA tenderness Skin: General skin exam: normal color Neuro: General: patient oriented x3, gait normal, tone normal and moves all extremities Extrem: General: normal to inspection, full ROM and no calf tenderness Psych: Appearance: grossly normal Mental Status: mental status grossly normal Speech and movement: Normal speech and movement present Affect: normal affect Attitude: cooperative Thought process: Normal thought process present Thought content: Yes Normal thought content present Insight: Good insight present (Psych) Judgement: Good judgement present (Psych)
[2020-08-16 06:55] LABS: Hematocrit 29.4 % (37.0-47.0); Hemoglobin 9.7 g/dL (12.0-15.0)
[2020-08-16] MEDS: POLYSACCHARIDE IRON COMPLEX 150 MG CAPSULE PO (07:24)
[2020-08-16] MEDS: DOCUSATE SODIUM 100 MG CAPSULE PO (07:24)
[2020-08-16 08:40] VITALS: BP 120/76; PULSE 80; RESP 18; TEMP 36.6; O2SAT 98
[2020-08-16] MEDS: ESCITALOPRAM OXALATE 10 MG TABLET PO (08:56)
[2020-08-16] MEDS: lamoTRIgine 25 MG TABLET 50 MG PO (08:56)
[2020-08-16] MEDS: FOLIC ACID 1 MG TABLET 2 MG PO (08:57)
[2020-08-16] MEDS: RHO(D) IMMUNE GLOBULIN 300 MCG SYRINGE IM (10:05)
--- NOTE | 2020-08-16 10:51 | WPDANLDPN2 ---
Anes-Prog Note L&D Date/Time: 08/16/20 10:51 Comfortable throughout: labor and delivery Neuraxial method: epidural Epidural/Spinal procedure site: clean & non-tender Neuro status: Neuro function grossly intact. Cardiovascular status: normal Respiratory status: normal Airway patency: baseline Mental status: baseline Post-Op hydration status: normal Vital Signs: Last Vital Signs Temp 36.6 C 08/16/20 08:40 Pulse 80 08/16/20 08:40 Resp 18 08/16/20 08:40 BP 120/76 08/16/20 08:40 Pulse Ox 98 08/16/20 08:40 Pain score (VAS): 3 I/O: Intake & Output 08/15/20 08/16/20 08/16/20 23:59 07:59 15:59 Intake Total 2200 Output Total 850 0220 200 Balance -850 -325 -200 Post-procedural complaints: none Patient feedback: Patient satisfied with anesthetic care.
== END 2020-08-16 11:59 | disposition home or self-care (01) | DRG 560 ==
LOC: ANHLDR 08-15 04:40 → ANHOB2 08-15 06:58
PROVIDERS: Admitting Provider Obstetrics & Gynecology; Visit Provider Obstetrics & Gynecology
DX: O14.04 Mild to moderate pre-eclampsia, complicating childbirth (principal); Z37.0 Single live birth; Z3A.39 39 weeks gestation of pregnancy; O70.0 First degree perineal laceration during delivery; O99.284 Endocrine, nutritional and metabolic diseases complicating childbirth; E72.12 Methylenetetrahydrofolate reductase deficiency; O36.0930 Maternal care for other rhesus isoimmunization, third trimester, not applicable or unspecified; O99.344 Other mental disorders complicating childbirth; F31.9 Bipolar disorder, unspecified; F41.1 Generalized anxiety disorder; E28.2 Polycystic ovarian syndrome; O99.62 Diseases of the digestive system complicating childbirth; K58.9 Irritable bowel syndrome, unspecified; O99.214 Obesity complicating childbirth; E66.9 Obesity, unspecified
CPT/HCPCS: 36415; 80053; 80307; 84550; 85014; 85018; 85025; 85461; 86592; 86850; 86900; 86901; 88307; 90384; A9270; J2405; J2590; J2790; J2795; J3010; J7120

== ENCOUNTER 2021-05-07 18:04 | Emergency (ER) | payer OTHER, SELFPAY ==
[2021-05-07 18:09] VITALS: BP 133/94; PULSE 83; RESP 16; TEMP 36.4; O2SAT 98
--- NOTE | 2021-05-07 18:44 | ED.FEMALEGU ---
HPI - Female Genitourinary General Chief complaint: Urogenital-Female <Pepper Louise PA-C - Last Filed: 05/07/21 20:05> Stated complaint: requesting std treatment <LEXIS Cabezas Last Filed: 05/07/21 20:05> Time Seen by Provider: 05/07/21 18:34 <LEXIS Cabezas Last Filed: 05/07/21 20:05> Source: patient <LEXIS Cabezas Last Filed: 05/07/21 20:05> Mode of arrival: ambulatory <LEXIS Cabezas Last Filed: 05/07/21 20:05> Limitations: no limitations <LEXIS Cabezas Last Filed: 05/07/21 20:05> History of Present Illness HPI Narrative: This is a 21-year-old female that presents to the emergency department for urogenital symptoms ongoing over the last 2 weeks. Reports dysuria, itching, and abnormal discharge. Denies fever, abdominal pain, vomiting, or flank pain. <LEXIS Cabzeas Last Filed: 05/07/21 20:05> Related Data Home medications: Home Medications Medication Instructions Recorded Confirmed aripiprazole [Abilify Maintena] 300 mg IM ONCE 05/07/21 05/07/21 <Pepper Louise PA-C - Last Filed: 05/07/21 20:05> Allergies/Adverse reactions: Allergies Allergy/AdvReac Type Severity Reaction Status Date / Time clavulanic acid Allergy Unknown Hives Verified 05/07/21 18:04 Sulfa (Sulfonamide Allergy Unknown Hives Verified 05/07/21 18:04 Antibiotics) doxycycline AdvReac Vomiting Verified 05/07/21 18:04 <LEXIS Cabezas Last Filed: 05/07/21 20:05> Review of Systems Review of Systems: CONSTITUTIONAL: Denies fever GASTROINTESTINAL: Denies abdominal pain, nausea, vomiting GENITOURINARY: Reports dysuria SKIN: Denies rash <LEXIS Cabezas Last Filed: 05/07/21 20:05> All systems reviewed & are unremarkable except as noted in HPI and below <Pepper Louise PA-C - Last Filed: 05/07/21 20:05> [facility] Past Medical History Medical History: Medical History Bipolar 1 disorder Compound heterozygous MTHFR mutation [id number] JOSE (generalized anxiety disorder) IBS (irritable bowel syndrome) PCOS (polycystic ovarian syndrome) Rh negative state in antepartum period <Pepper Louise PA-C - Last Filed: 05/07/21 20:05> Surgical History Surgical History: Surgical History H/O wisdom tooth extraction Hx of tonsillectomy <Pepper Louise PA-C - Last Filed: 05/07/21 20:05> Family History Family History: Family History Grandparent Hypertension Sibling Anemia <Pepper Louise PA-C - Last Filed: 05/07/21 20:05> Social History Social History: Social History Smoking status: Never smoker Alcohol intake: never Substance use: former Substance use type: marijuana Gender identity (if verbalized by the patient): Female Spiritual care concerns: No Agree to blood products: Yes <Pepper Louise PA-C - Last Filed: 05/07/21 20:05> Exam Narrative: GENERAL: Well-appearing, well-nourished, and in no acute distress. HEAD: Normocephalic, atraumatic. EYES: EOMI. CHEST: Clear to auscultation. No respiratory distress. No wheezes rales or rhonchi HEART: Regular rate and rhythm. No murmur heard. Normal peripheral pulses. ABDOMEN: Soft, nontender, nondistended, normal active bowel sounds. EXTREMITIES: Normal range of motion. No edema. SKIN: Warm, dry, no rash. NEURO: No focal deficits. Alert and oriented x3. PSYCH: Normal mood and affect PELVIC: Normal external genitalia. Cervix with small amount of irritation around the os. Clear/yellow cervical discharge. No CMT <Pepper Louise PA-C - Last Filed: 05/07/21 20:05> Course ASPARAGUS BUNCHER/PA Physician Supervision I did not see this patient nor was the care plan discussed with me. I was available for evaluation and consu
[2021-05-07 19:18] LABS: Add Urine Microscopic? YES; Appearance Urine Cloudy (Clear); Bilirubin Urine Negative (Negative); Blood Urine Negative (Negative); Color Urine Yellow (Yellow); Glucose Urine UA Negative (Negative); Ketones Urine Negative (Negative); Leukocyte Esterase Ur 2+ LEU/UL (Negative); Mucus Urine Moderate /lpf; Nitrate Urine Negative (Negative); Protein Urine Negative (Negative); Specific Grav Ur 1.027 (1.001-1.035); Squamous Epithelial Cell Urine Many /hpf (Few); WBC Urine 31-50 /hpf
[2021-05-07] MEDS: AZITHROMYCIN 250 MG TABLET 1000 MG PO (19:37)
[2021-05-07] MEDS: cefTRIAXone 1 GM VIAL 0.5 GM IM (19:38)
== END 2021-05-07 20:20 | disposition home or self-care (01) ==
PROVIDERS: Physician Assistant; Emergency Provider Emergency Medicine
DX: R30.0 Dysuria (principal); L29.2 Pruritus vulvae; F31.9 Bipolar disorder, unspecified; F41.1 Generalized anxiety disorder; K58.9 Irritable bowel syndrome, unspecified; E28.2 Polycystic ovarian syndrome
CPT/HCPCS: 81001; 81025; 87070; 87077; 87086; 87088; 87491; 87591; 87808; 96372; 99284; A9270; J0696

== ENCOUNTER 2022-01-12 21:58 | Emergency (ER) | payer OTHER, SELFPAY ==
[2022-01-12 22:15] VITALS: BP 122/79; PULSE 84; RESP 18; TEMP 36.8; O2SAT 97
--- NOTE | 2022-01-12 22:15 | ED.FEMALEGU ---
HPI - Female Genitourinary General Chief complaint: [employer] Stated complaint: itching in groin area Time Seen by Provider: 01/12/22 22:15 Source: patient Mode of arrival: ambulatory History of Present Illness HPI Narrative: 21-year-old female with a history of PCOS, bipolar, JOSE, compound heterozygous MTHFR mutation, Rh negative presents to the ER with -- vulvar itching. -- foul-smelling vaginal discharge. She has a prior history bacterial vaginosis MD elicited complaint: genital itching Location of symptoms: external genitalia and perineum Severity: mild Vaginal discharge: vaginal odor Vaginal bleeding: none Exacerbating factors: none Relieving factors: none Associated symptoms: denies other symptoms Date of Last Menstrual Period: 01/08/22 Related Data Home Medications Medication Instructions Recorded Confirmed aripiprazole 300 mg intramuscular 300 mg IM ONCE 05/07/21 01/12/22 suspension,extended release (Abilify Maintena) Allergies Allergy/AdvReac Type Severity Reaction Status Date / Time clavulanic acid Allergy Unknown Hives Verified 05/07/21 18:04 Sulfa (Sulfonamide Allergy Unknown Hives Verified 05/07/21 18:04 Antibiotics) doxycycline AdvReac Vomiting Verified 05/07/21 18:04 Review of Systems Review of Systems: All systems reviewed & are unremarkable except as noted in HPI and below Constitutional: Constitutional: Reports as per HPI and Reports no additional constitutional complaints Eyes: Eyes: Reports as per HPI and Reports no additional eye complaints ENT: Reports system reviewed and no additional complaints, except as documented and Reports as per HPI Cardiovascular: Cardiovascular: Reports as per HPI and Reports no additional cardiovascular complaints Respiratory: Respiratory: Reports as per HPI and Reports no additional respiratory complaints Gastrointestinal: Gastrointestinal: Reports as per HPI and Reports no additional gastrointestinal complaints Genitourinary: Genitourinary: Reports no additional female genitourinary complaints and Reports as per HPI Comments: genital itching involving the labia. No vaginal discharge Musculoskeletal: Musculoskeletal: Reports no additional musculoskeletal complaints and Reports as per HPI Integumentary/Breasts: Skin/Breast: Reports system reviewed and no additional complaints, except as docu and Reports as per HPI Neurologic: Reports system reviewed and no additional complaints, except as documented and Reports as per HPI Psychiatric: Psychiatric: Reports no additional psychiatric complaints and Reports as per HPI Endocrine: Endocrine: Reports no additional endocrine complaints and Reports as per HPI Hematologic/Lymphatic: Hematologic/Lymphatic: Reports no additional hematologic/lymphatic complaints and Reports as per HPI Allergic/Immunologic: Allergic/Immunologic: Reports no additional allergic/immunologic complaints and Reports as per HPI PMFSH Past Medical History Medical History Bipolar 1 disorder Compound heterozygous MTHFR mutation [id number] JOSE (generalized anxiety disorder) IBS (irritable bowel syndrome) PCOS (polycystic ovarian syndrome) Rh negative state in antepartum period Surgical History Surgical History H/O wisdom tooth extraction Hx of tonsillectomy Family History Family History Grandparent Hypertension Sibling Anemia Social History Social History Smoking status: Never smoker Alcohol intake: never Substance use: former Substance use type: marijuana Gender identity (if verbalized by the patient): Female Spiritual care concerns: No Agree to blood products: Yes Exam Const: General: healthy appearing and no acute distress Nutritional Appearance: well nourished [place]
[2022-01-13 00:16] VITALS: BP 133/74; PULSE 78; RESP 18; O2SAT 99
[2022-01-13 01:00] VITALS: BP 130/74; PULSE 78; RESP 20; TEMP 36.2; O2SAT 100
--- NOTE | 2022-01-17 16:17 | PC.NURSE ---
PER CULTURE REPORT PT IS POSITIVE FOR C. TRACHOMATIS. NO TREATMENT DURING ED VISIT OR RX TO COVER. PER DR MARTINEZ, PT IS TO BE ON DOXYCYCLINE 100MG PO BID X 7 DAYS. MADE CONTACT WITH PT, SHE IS AWARE OF TREATMENT PLAN. RX CALLED INTO [facility] REQUEST[facility]. [phone]. SHE IS TO CONTACT HER PARTNER TO NOTIFY. PT IS AWARE OF PLAN OF CARE.
--- NOTE | 2022-01-18 14:12 | PC.NURSE ---
abnormal culture obtained. pt treated prophylactically through the er. diflucan/flagyl . no action taken at this time.
== END 2022-01-13 01:04 | disposition home or self-care (01) ==
PROVIDERS: Emergency Provider Internal Medicine Critical Care Medicine
DX: L29.2 Pruritus vulvae (principal); N76.0 Acute vaginitis
CPT/HCPCS: 87070; 87491; 87591; 87661; 99284